=== PATIENT | male | born 1965 | race African-American/Black ===

== ENCOUNTER 2020-03-07 20:09 | Inpatient (IN) | payer OTHER ==
[~2020-03-07] VITALS: Ht 177.8 cm; Wt 100.1 kg
[2020-03-07 20:28] VITALS: Ht 177.8 cm; Wt 100.1 kg
--- NOTE | 2020-03-07 20:33 | NUR ---
PATIENT JUDI DALE [facility] PARAMEDICS TO ED ROOM 14 FOR C/O NAUSEA/VOMITING FOR THE PAST THREE DAYS. PATIENT VOMITED FOUR TIMES TODAY DURING LUNCH AND DINNER TODAY. PATIENT DESCRIBES THE INCIDENT , "WHEN [HE] EATS, HE COUGHS AND THEN THE FOOD COMES OUT." PATIENT WAS TESTED FOR COVID-19 YESTERDAY AT [facility]. PATIENT DENIES HISTORY OF HYPOTENSION. DENIES PMH VOMITING EPISODES. DENIES PAIN. DENIES SHORTNESS OF BREATH. DENIES CHEST PAIN. PATIENT IS [facility] WITH TWO DEPUTIES AT BEDSIDE. WILL CONTINUE TO MONITOR. CALL LIGHT WITHIN REACH.
--- NOTE | 2020-03-07 20:39 | NUR ---
\PATIENT STATES HE HAS REGULAR BOWEL AND BLADDER REGIMEN.
[2020-03-07 21:08] LABS: BASOPHIL % 0.4 % (0-2); PLATELET COUNT 130 x10^3mcL (130-400); RED CELL DISTRIBUTION WIDTH 14.1 % (11.5-14.5)
--- NOTE | 2020-03-07 21:18 | NUR ---
PATIENT IN STABLE CONDIION. DEPUTIES AT BEDSIDE.
[2020-03-07 21:31] LABS: ALBUMIN 3.4 g/dL (3.4-5.0); BILIRUBIN TOTAL 0.2 mg/dL (0.20-1.00); C REACTIVE PROTEIN 4.2 mg/dL (<=0.9); CALCIUM 7.6 mg/dL (8.5-10.1); CARBON DIOXIDE 20.7 mmol/L (21-32); CREATININE SERUM 3.1 mg/dL (0.7-1.3); POTASSIUM SERUM 4.2 mmol/L (3.5-5.1)
--- NOTE | 2020-03-07 23:11 | NUR ---
ANTIBIOTICS AND IV FLUIDS RUNNING INDICATED. PATIENT BLOOD PRESSURE CUFF CHANGED. PATIENT'S CURRENT BLOOD PRESSURE: 109/61 (73), HR: 84 BPM
[2020-03-07 23:45] LABS: UA SPECIFIC GRAVITY 1.025 (1.005-1.035); microscopic required? YES; urine erythrocyte 1+ (NEGATIVE)
--- NOTE | 2020-03-07 23:59 | NUR ---
REPORT GIVEN TO ARASELI TREVIZO.
[2020-03-08 00:29] VITALS: BP 100/52
--- NOTE | 2020-03-08 00:30 | NUR ---
PT TRANSFERRED TO ICU BED 9 ACCOMPNAIED FROM ER, [facility] EMT AND LANDEN RN, 2 [facility] GUARDS. PT AMBULATED TO ICU BED 9 FROM [facility] [place]. PT ATTACHED TO FULL MASTER COOK AND CONTINUOUS PULSE OXIMETRY. RECEIVED PT WITH AWAKE/ALERT, LAC 20G, RAC 20G SALINE LOCKED, ON ROOM AIR, NO ACUTE DISTRESS, NO SOB. SEE NURSING ASSESSMENT FOR MORE DETAILS.
--- NOTE | 2020-03-08 00:52 | NUR ---
NS GTT INITIATED AT THIS TIME @ 100 ML/HR PER EMAR.
--- NOTE | 2020-03-08 01:40 | NUR ---
PT DESATURATING @ 89-90%, NASAL CANNULA 2LPM ATTACHED TO PATIENT. PT NOW SATURATING 95-97%.
[2020-03-08 03:04] VITALS: BP 113/50
[2020-03-08 04:00] VITALS: BP 113/50
[2020-03-08 05:15] LABS: BASOPHIL % 0.4 % (0-2); RED CELL DISTRIBUTION WIDTH 14.2 % (11.5-14.5)
[2020-03-08 05:16] LABS: PLATELET COUNT 120 x10^3mcL (130-400)
[2020-03-08 05:32] LABS: CALCIUM 6.7 mg/dL (8.5-10.1); CREATININE SERUM 2.4 mg/dL (0.7-1.3); POTASSIUM SERUM 4.2 mmol/L (3.5-5.1)
--- NOTE | 2020-03-08 07:07 | NUR ---
GAVE REPORT TO AMBER TREVIZO. UPDATES PROVIDED, QUESTIONS ANSWERED. ENDORSED CARE.
--- NOTE | 2020-03-08 07:28 | NUR ---
SPOKE WITH DR. JORDAN GIVEN UPDATES ON PT CURRENT STATUS.
[2020-03-08 07:50] VITALS: BP 121/66
--- NOTE | 2020-03-08 07:50 | NUR ---
RECEIVED PT FROM CVICU NURSE RN. Cristina/OX4. ON STUDENT DEVELOPMENT ADVISOR. PT DENIES ANY PAIN AT THIS TIME. PT DENIES ANY N/V AT THIS TIME. RESPIRATIONS EQUAL AND UNLABORED ON 2L NC, DENIES ANY SOB. PT REPORTS HAVE DRY COUGH ON AND OFF, RR:16, SPO2:95%. NO ACUTE RESP DISTRESS NOTED. PT NOTED TO HAVE TOTAL OF 600ML OF CLEAR YELLOW URINE FROM URINAL. PT SITTING UP TO EAT BREAKFAST, TOLERATING WELL AT THIS TIME. IV TO LAC PATENT AND INFUSING, NO REDNESS OR SWELLING NOTED. WILL CONTINUE TO MONITOR. CALL LIGHT IN REACH. BED IN LOWEST POSITION.
--- NOTE | 2020-03-08 09:10 | NUR ---
PT SITTING UP IN BED. PT DENIES ANY PAIN OR SOB AT THIS TIME. DR. THIBODEAUX AT BEDSIDE, STATES PT STABLE TO TX TO TELE. WILL CONTINUE TO MONITOR. CALL LIGHT IN REACH. BED IN LOWEST POSITION.
--- NOTE | 2020-03-08 10:06 | NUR ---
SPOKE WITH DR. PERDOMO AT BEDSIDE, PER DR. PERDOMO WILL ORDER IV FLUID HYDRATION.
--- NOTE | 2020-03-08 13:06 | NUR ---
LATE ENTRY: 1237: PATIENT ARRIVED TO UNIT WITH POLICE ESCORT DUE TO [facility] STATUS, TRANSFERED FROM THE ICU BY WHEELCHAIR. PATIENT ALERT AND ORIENTED X 4, DENIED ACUTE DISTRESS OR PAIN, WILL CONTINUE TO [facility].
[2020-03-08 16:32] VITALS: BP 108/56
--- NOTE | 2020-03-08 19:26 | NUR ---
REPORT GIVEN TO METAL TEMPLATE MAKER NURSE CARE ENDORSED
--- NOTE | 2020-03-08 19:40 | NUR ---
RECIEVED PT FROM PREVIOUS SHIFT NURSE. PT EASILY AROUSABLE, AOX4, ABLE TO FOLLOW COMMANDS, DENIES MYERS, N/V, OR PAIN AT THE MOMENT, SPEECH CLEAR, ABLE TO MAKE NEEDS KNOWN, AND NO FACIAL DROOPING NOTED. RR EVEN AND UNLABORED ON 2L/NC, CHEST RISING EQUALLY, DENIES SOB OR DIFFICULTY BREATHING, AND DRY COUGH NOTED. TELE #24 NSR, DENIES CHEST PAIN OR PRESSURE. IV RAC AND LAC WNL, NO ERYTHEMA, EDEMA, OR DRAINAGE NOTED, NS RUNNING AT 100ML/HR ON RAC. PT ON DROPLET/CONTACT ISOLATION FOR COVID-19(+). NO SIGNS OF ACUTE CHANGE OR DISTRESS NOTED. BED IN LOWEST POSITION, SIDE RAILS X2, AND CALL LIGHT WITHIN REACH. TWO CORRECTIONAL OFFICERS PRESENT. WILL CONTINUE TO MONITOR.
--- NOTE | 2020-03-08 19:48 | NUR ---
RECIEVED PT FROM PREVIOUS SHIFT NURSE. PT EASILY AROUSABLE, AOX4, ABLE TO FOLLOW COMMANDS, DENIES MYERS, N/V, OR PAIN AT THE MOMENT, SPEECH CLEAR, ABLE TO MAKE NEEDS KNOWN, AND NO FACIAL DROOPING NOTED. RR EVEN AND UNLABORED ON 2L/NC, CHEST RISING EQUALLY, DENIES SOB OR DIFFICULTY BREATHING, AND DRY COUGH NOTED. TELE #24 NSR, DENIES CHEST PAIN OR PRESSURE. IV RAC AND LAC WNL, NO ERYTHEMA, EDEMA, OR DRAINAGE NOTED, NS RUNNING AT 100ML/HR ON RAC. PT ON DROPLET/CONTACT ISOLATION FOR COVID-19 RO/0 PENDING RESULTS. NO SIGNS OF ACUTE CHANGE OR DISTRESS NOTED. BED IN LOWEST POSITION, SIDE RAILS X2, AND CALL LIGHT WITHIN REACH. TWO CORRECTIONAL OFFICERS PRESENT. WILL CONTINUE TO MONITOR.
[2020-03-08 23:12] VITALS: BP 125/60
--- NOTE | 2020-03-09 01:55 | NUR ---
PT RESTING COMFORTABLY IN BED, HOB ELEVATED, AND EASILY AROUSABLE. RR EVEN AND UNLABORED ON 2L/NC, CHEST RISING EQUALLY. TELE #24 NSR. NO SIGNS OF ACUTE CHANGE OR DISTRESS NOTED. IV RAC AND LAC WNL, NO ERYTHEMA, EDEMA, OR DRAINAGE NOTED, NS RUNNING AT 100ML/HR ON RAC. PT ON DROPLET/CONTACT PRECAUTION FOR COVID-19 R/O, PENDING RESULTS. BED IN LOWEST POSITION, SIDE RAILS UP X2, AND CALL LIGHT WITHIN REACH. TWO CORRECTIONAL OFFICERS PRESENT. WILL CONTINUE TO MONITOR.
[2020-03-09 05:21] VITALS: BP 100/55
--- NOTE | 2020-03-09 06:32 | NUR ---
PT RESTING COMFORTABLY IN BED, EASILY AROUSABLE. RR EVEN AND UNLABORED ON 2L/NC, CHEST RISING EQUALLY. TELE #24 NSR. NO SIGNS OF ACUTE CHANGE OR DISTRESS NOTED. IV RAC AND LAC NOTED BOTH WNL, NS RUNNING AT 100ML/HR ON RAC. PT ON DROPLET/CONTACT ISOLATION FOR PENDING COVID-19 TEST. BED IN LOWEST POSITION, BED RAILS X2, AND CALL LIGHT WITHIN REACH. TWO CORRECTIONAL OFFICERS AT BEDSIDE. WILL ENDORSE CARE TO ONCOMING SHIFT NURSE, AND WILL CONTINUE TO MONITOR.
[2020-03-09 06:47] LABS: PLATELET COUNT 144 x10^3mcL (130-400); RED CELL DISTRIBUTION WIDTH 14.3 % (11.5-14.5)
--- NOTE | 2020-03-09 07:00 | NUR ---
RECEIVED PT FROM NIGHT RN. PT RESTING IN BED, AAOX4. SPEECH CLEAR. DENIES MYERS/DIZZINESS. RES E/U, NO RESPIRATORY DISTRESS ON 2L/MIN NC. DRY COUGH NOTED, DENIES SOB. TELE MONITOR 24 SHOWING SR, DENIES CHEST PAIN/PRESSURE. ABDOMEN ROUND AND SOFT. DENIES N/V, DIARRHEA. VOIDS IN URINAL WITHOUT DIFFICULTY. IV SITE TO RAC INFUSING NS AT 100ML/HR. IV SITE TO LAC SL. BOTH IV SITES FLUSHED AND PATENT W NO ERYTHEMA, NO SWELLING NOTED. SAFETY PRECAUTIONS IN PLACE. GUARD AT THE DOOR.
[2020-03-09 07:11] LABS: ALKALINE PHOSPHATASE 45 U/L (46-116); ALT/SGPT 56 U/L (16-63); AST/SGOT 45 U/L (15-37); BILIRUBIN TOTAL 0.2 mg/dL (0.20-1.00); CARBON DIOXIDE 24.7 mmol/L (21-32); CHLORIDE SERUM 106 mmol/L (98-107); CREATININE SERUM 1.3 mg/dL (0.7-1.3); GFR1 > 60 mL/min; GLUCOSE SERUM 89 mg/dL (74-106); PHOSPHOROUS 2.3 mg/dL (2.5-4.9); POTASSIUM SERUM 4.1 mmol/L (3.5-5.1); SODIUM SERUM 142 mmol/L (136-145); TOTAL PROTEIN, SERUM 6.5 g/dL (6.4-8.2)
[2020-03-09 08:10] VITALS: BP 99/49
[2020-03-09 12:48] VITALS: BP 96/63
[2020-03-09 14:32] LABS: BAND NEUTROPHIL 4 % (0-10); MONOCYTE 16 % (0-7); SEGMENTED NEUTROPHILS 60 % (37-75); rbc morphology (normal/abnorm) ABNORMAL (NORMAL)
[2020-03-09 14:33] LABS: PATH REVIEW for HEMA NO; PLATELET MORPHOLOGY PLATELETS DECREASED
[2020-03-09 16:48] VITALS: BP 114/65
--- NOTE | 2020-03-09 19:05 | NUR ---
PT RESTING IN BED WITHOUT APPARENT DISTRESS. NO C/O PAIN/DISCOMFORT THROUGHOUT SHIFT. WILL ENDORSE CARE TO NEXT SHIFT
--- NOTE | 2020-03-09 20:34 | NUR ---
PT RECIEVED FROM DAY SHIFT NURSE. PT IS RESTING IN BED AT THIS TIME. A/O X4, CALM AND COOPERATIVE. PT IS TELE 24, NSR, PULSE 63, DENIES CP OR PALPITATIONS. PT HAS PAPABLE PULSES, NO EDEMA PRESENT AT THIS TIME. PT LUNG SOUNDS ARE DIMINISHED AT THE BASES. DRY COUGH PRESENT. PT IS ON RMA, SP02 97%. NO SKIN WOUNDS PRESENT. PT IS ABLE TO SELF VOID. PT HAS ACTIVE BOWEL SOUNDS. PT REPORTS SOFT BM. PT DENIES PAIN OR DISCOMFORT. PT HAS IV ON RAC/LAC, PATENT, CDI. CALL LIGHT WITHIN REACH WILL CONTINUE TO MONITOR.
[2020-03-09 20:35] VITALS: BP 134/82
--- NOTE | 2020-03-10 00:40 | NUR ---
PT IS RESTING IN BED AT THIS TIME. DENIES PAIN OR DISCOMFORT. BREATHING E/U, RMA. PT DENIES SOB. NO S/S OF ACUTE DISTRESS NOTED. DENIES CP OR PALPITATIONS. ALL NEEDS AND CONCERNS HAVE BEEN MET AT THIS TIME. CALL LIGHT WITHIN REACH. WILL CONTINUE TO MONITOR.
[2020-03-10 06:42] VITALS: BP 120/72
--- NOTE | 2020-03-10 06:43 | NUR ---
PT RESTING IN BED AT THIS TIME. BREATHING E/U, RMA, SP02 93%. NO RESPIRATORY DISTRESS NOTED AT THIS TIME. PT DENIES PAIN OR DISCOMFORT AT THIS TIME. ALL NEEDS AND CONCERNS HAVE BEEN MET THIS SHIFT. CALL LIGHT WITHIN REACH. WILL ENDORSE TO DAY SHIFT NURSE.
--- NOTE | 2020-03-10 07:00 | NUR ---
RECEIVED PT FROM NIGHT RN. PT RESTING IN BED AAOX4, SPEECH CLEAR. DENIES MYERS/DIZZINESS. RES E/U, NO RESPIRATORY DISTRESS NOTED. DENIES SOB. TELE MONITOR 24 SHOWING SR, DENIES CP/PRESSURE. PERIPHERAL PULSES PALPABLE W NO EDEMA NOTED. ABDOMEN SOFT. VOIDS IN URINAL WITHOUT DIFFICULTY. NO GI/ COMPLAINT. IV SITE TO RAC INFUSING NS AT 75ML/HR. IV SITE TO LAC SL. BOTH IV SITES PATENT AND CDI W NO ERYTHEMA, SWELLING NOTED. GUARD AT DOOR. SAFETY PRECAUTIONS IN PLACE.
[2020-03-10 07:48] LABS: BASOPHIL % 0.4 % (0-2); PLATELET COUNT 153 x10^3mcL (130-400); RED CELL DISTRIBUTION WIDTH 13.7 % (11.5-14.5)
[2020-03-10 08:47] LABS: CALCIUM 7.3 mg/dL (8.5-10.1); CARBON DIOXIDE 24.2 mmol/L (21-32); CHLORIDE SERUM 104 mmol/L (98-107); GFR1 > 60 mL/min; GLUCOSE SERUM 83 mg/dL (74-106); POTASSIUM SERUM 3.8 mmol/L (3.5-5.1); SODIUM SERUM 140 mmol/L (136-145)
--- NOTE | 2020-03-10 17:45 | NUR ---
RETAIL DISTRICT MANAGER REPORTS ORAL TEMP OF 99.8F, GIVEN TYLENOL PER EMAR.
--- NOTE | 2020-03-10 18:46 | NUR ---
PT RESTING IN BED WITHUOT APPARENT DISTRESS. DENIES ANY PAIN/DISCOMFORT. IV SITE TO RAC INFUSING NS AT 75 ML/HR. IV SITE TO LAC SL. BOTH IV SITE PATENT AND CDI W NO ERYTHEMA, NO SWELLING NOTED. NO SIGNIFICANT CHANGES NOTED. WILL ENDORSE CARE TO NEXT SHIFT
[2020-03-10 22:15] VITALS: BP 121/70
--- NOTE | 2020-03-10 22:20 | NUR ---
PT RECIEVED FROM DAY SHIFT NURSE. PT IS RESTING IN BED AT THIS TIME. DROPLET ISOLATION, COVID +. PT IS A/O X4, CALM AND COOPERATIVE. PT IS ON TELE 24, NSR, PULSE 75. DENIES CP OR PALPITATIONS. PT HAS PAPABLE PULSES, NO EDEMA PRESENT AT THIS TIME. LUNG SOUNDS DIMINSHED ON THE BILATERAL BASES. PT DENIES SOB, RMA S02 98%. BOWEL SOUNDS ACTIVE. PT IS ABLE TO SELF VOID, USES URINAL. PT HAS NO GENERALIZED WEAKNESS, PT IS ABLE TO AMBULATE. NO SKIN WOUNDS, SKIN CLEAN AND DRY. PT DENIES PAIN OR DISCOMFORT. IV ON RAC/LAC, CDI, PATENT. CALL LIGHT WITHIN REACH. WILL CONTINUE TO MONITOR.
--- NOTE | 2020-03-11 00:16 | NUR ---
PT RESTING IN BED AT THIS TIME. BREATHING E/U, RMA, SP02 97%. NO ACUTE RESPIRATORY DISTRESS NOTED. PT DENIES SOB, CP OR PALPITATIONS. PULSE 73, NSR. NO ACUTE DISTRESS NOTED AT THIS TIME. PT DENIES PAIN OR DISCOMFORT. CALL LIGHT WITHIN REACH. WILL CONTINUE TO MONITOR.
--- NOTE | 2020-03-11 05:25 | NUR ---
PT RESTING IN BED AT THIS TIME. PT SLEPT IN INTERVALS DURING THE NIGHT. NO C/O OF PAIN OR DISCOMFORT THROUGHOUT THE SHIFT. PULSE 79, NSR, DENIES CP OR PALPITATIONS. SP02 97%, DENIES SOB. NO ACUTE RESPIRATORY DISTRESS OBSERVED. PT DROPLET/CONTACT ISOLATION, COVID +. ALL NEEDS AND CONCERNS MET THIS SHIFT. WILL ENDORSE TO DAY SHIFT NURSE.
[2020-03-11 06:58] VITALS: BP 122/75
--- NOTE | 2020-03-11 07:20 | NUR ---
RECEIVED PATIENT. IN BED, SLEEPING. EASILY AROUSABLE. NO ACUTE RESP DISTRESS NOTED. NO COMPLAINTS OF PAIN AT THIS TIME. IV INTACT AND PATENT. SAFETY PREC IN PLACE. CALL LIGHT WITHIN REACH. WILL CONTINUE TO MONITOR. GUARDS OUTSIDE ROOM. REMAINS ON DROPLET ISO FOR COVID ISOLATION.
[2020-03-11 08:15] VITALS: BP 125/66
[2020-03-11 11:31] LABS: CALCIUM 7.5 mg/dL (8.5-10.1); CARBON DIOXIDE 25.3 mmol/L (21-32); CHLORIDE SERUM 107 mmol/L (98-107); CREATININE SERUM 0.9 mg/dL (0.7-1.3); GFR1 > 60 mL/min; GLUCOSE SERUM 157 mg/dL (74-106); POTASSIUM SERUM 3.5 mmol/L (3.5-5.1); SODIUM SERUM 140 mmol/L (136-145)
[2020-03-11 11:36] LABS: ALT/SGPT 58 U/L (16-63); AST/SGOT 32 U/L (15-37)
[2020-03-11 11:38] LABS: BASOPHIL % 0.3 % (0-2); PLATELET COUNT 179 x10^3mcL (130-400); RED CELL DISTRIBUTION WIDTH 14.1 % (11.5-14.5)
--- NOTE | 2020-03-11 11:45 | NUR ---
DISCONTINUED IV FLUIDS ORDERED. PATIENT STABLE. PATIENT O2 WEANED DOWN TO ROOM AIR. TOLERATING WELL. ENCOURAGED PRONE POSITION. INFORMED PATIENT TO CALL IF EXPERIENCING SOB OR DIFFICULTY BREATHING. WILL CONTINUE TO MONITOR.
[2020-03-11 13:43] VITALS: BP 133/87
--- NOTE | 2020-03-11 14:00 | NUR ---
PATIENT STABLE. REMAINS ON ROOM AIR WITH 96% SATURATION AT THIS TIME. NO ACUTE RESP DISTRESS NOTED. NO C/O PAIN. IV SITES, WNL. INTACT AND PATENT. NO ERYTHEMA/SWELLING NOTED. SAFETY PRECAUTION IN PLACE. CALL LIGHT WITHIN REACH. WILL CONTINUE TO MONITOR. GUARDS OUTSIDE ROOM. REMAINS ON COVID ISOLATION.
--- NOTE | 2020-03-11 14:30 | NUR ---
PER PHARMACIST, PATIENT IS NOT A CANDIDATE PER PROTOCOL TO RECEIVE REMDESIVIR MEDICATION DUE TO PATIENT BEING IN ROOM AIR WITH O2 SATURATION ABOVE 94% CHARGE NURSE MADE AWARE. WILL CONTINUE TO MONITOR.
[2020-03-11 17:01] VITALS: BP 147/92
--- NOTE | 2020-03-11 17:15 | NUR ---
RECEIVED REMDESEVIR MEDICATION FROM PHARMACY. CONFIRMED ADMINISTRATION WITH PHARMACIST. PER MANNY LEO, OK TO GIVE THIS MEDICATION PATIENT STILL QUALIFIES THE PROTOCOL. WILL ADMINISTER MEDICATION TO PATIENT. WILL CONTINUE TO MONITOR.
--- NOTE | 2020-03-11 18:40 | NUR ---
PATIENT STABLE. NO ACUTE RESP DISTRESS NOTED. REMAINS ON ROOM AIR. NO C/O PAIN. IV INTACT AND PATENT. SAFETY PREC IN PLACE. CALL LIGHT WITHIN REACH. WILL ENDORSE CARE TO SOFTWARE TOOLS BUILD ENGINEER NURSE. GUARDS OUTSIDE ROOM. REMAINS ON COVID POSITIVE ISOLATION.
--- NOTE | 2020-03-11 19:20 | NUR ---
PATIENT STABLE. ALL NEEDS MET. ENDORSED ALL CARE TO BEEF SPLITTER NURSE.
--- NOTE | 2020-03-11 20:50 | NUR ---
PT RECIEVED FROM DAY SHIFT NURSE. PT RESTING IN BED AT THIS TIME. NO ACUTE DISTRESS NOTED AT THIS TIME. PT A/O X4, CALM AND COOPERATIVE. TELE 24, NSR, PULSE 80. DENIES CP OR PALPITATIONS. PT HAS PAPABLE PULSES, NO EDEMA PRESENT AT THIS TIME. PT HAS DIMINISHED BILATERAL BASES, RMA, SP02 93%. DENIES SOB. PT HAS ACTIVE BOWEL SOUNDS, PT REPORTS WATERY STOOL. PT IS ABLE TO SELF VOID, URINAL AT THE BEDSIDE. PT HAS NO WEAKNESS, ABLE TO AMBULATE. PT HAS CLEAN AND DRY SKIN. PT IS ON TKO 10 ML/HR, IV LAC/RAC, CDI, PATENT. CALL LIGHT WITHIN REACH WILL CONTINUE TO MONITOR.
[2020-03-11 21:41] VITALS: BP 126/70
--- NOTE | 2020-03-12 00:22 | NUR ---
PT RESTING IN BED AT THIS TIME. NO ACUTE DISTRESS AT THIS TIME. PT ON RMA, SP02 96%. DENIES SOB. PT PULSE IS 83, DENIES CP OR PALPITATIONS. PRECAUTIONS IN PLACE. DENIES PAIN OR PALPITATIONS. CALL LIGHT WITHIN REACH. WILL CONTINUE TO MONITOR.
--- NOTE | 2020-03-12 05:30 | NUR ---
PT RESTING IN BED AT THIS TIME. NO S/S OF ACUTE DISTRESS NOTED AT THIS TIME. PT HAS PULSE 83. PT DENIES CP AND PALPITATIONS. SPO2 96%, DENIES SOB. PT DENIES PAIN OR DISCOMFORT. ALL PRECAUTIONS IN PLACE. PT SLEPT IN INTERVALS THROUGHOUT THE NIGHT. [facility] OFFICERS OUTSIDE DOOR. ALL NEEDS AND CONCERNS MET THIS SHIFT. WILL ENDORSE TO DAY SHIFT NURSE.
[2020-03-12 07:15] LABS: CHLORIDE SERUM 107 mmol/L (98-107); CREATININE SERUM 0.8 mg/dL (0.7-1.3); GFR1 > 60 mL/min; GLUCOSE SERUM 94 mg/dL (74-106); POTASSIUM SERUM 3.6 mmol/L (3.5-5.1); SODIUM SERUM 142 mmol/L (136-145)
[2020-03-12 07:36] VITALS: BP 135/84
[2020-03-12 07:38] LABS: BASOPHIL % 0.3 % (0-2); PLATELET COUNT 218 x10^3mcL (130-400); RED CELL DISTRIBUTION WIDTH 14.1 % (11.5-14.5)
--- NOTE | 2020-03-12 08:06 | NUR ---
RECEIVED PT FROM CLEANER HOUSEKEEPING RN. RANDALL ABLE TO MAKE NEEDS KNOWN. ON TELE #24 NSR. DENIES CP. LUNGS DIMINISHED AT BASES, ON RA, C/O DRY COUGH, DENIES SOB. ABODMEN SOFT/ROUND, C/O WATERY STOOL, ABDOMEN NONTENDER, DENIES N/V. AMBULATORY PER BRP, SKIN INTACT, DENIES PAIN. IV SITE CLEAN AND DRY. CALL LIGHT IN REACH WILL CONTINUE TO MONITOR.
[2020-03-12 08:51] VITALS: BP 115/67
[2020-03-12 12:43] VITALS: BP 137/84
[2020-03-12 17:59] VITALS: BP 142/86
[2020-03-12 18:44] VITALS: BP 142/86
--- NOTE | 2020-03-12 18:46 | NUR ---
PT RESTING IN BED, DENIES ANY SOB. COUGH NOTED. WILL ENDORSE CARE TO COMMUNITY COORDINATOR RN.
--- NOTE | 2020-03-12 19:41 | NUR ---
PT RESTING IN BED, ALERT AND ORIENTED X 4, DENIES HEADACHE OR DIZZINESS, BREATHING EVEN AND UNLABORED WITH ON AND OFF O2 2L VIA NC, DE-SATS AT TIMES, LUNG SOUNDS DIMINISHED, ON TELE#24 NSR, DENIES CHEST PAIN, SL TO LAC, PULSES PALPABLE, NO EDEMA NOTED, AMBULATORY WITH STEADY GAIT, ABD SOFT AND FLAT WITH ACTIVE BS, DENIES ABD PAIN, VOIDING FREELY, NO DISTRESS NOTED, WILL KEEP TO MONITOR.
[2020-03-12 20:28] VITALS: BP 136/81
[2020-03-13 05:40] VITALS: BP 134/74
--- NOTE | 2020-03-13 06:29 | NUR ---
PT AWAKE AND RESTING IN BED, PT ACCIDENTALLY HAD BM THIS MORNING, LINENS CHANGED, MILD SOB ON EXERTION, PLACED PT ON O2 2L VIA NC, NO DISTRESS NOTED, WILL KEEP TO MONITOR.
[2020-03-13 07:14] LABS: PLATELET COUNT 244 x10^3mcL (130-400); RED CELL DISTRIBUTION WIDTH 14.1 % (11.5-14.5)
--- NOTE | 2020-03-13 07:15 | NUR ---
RECEIVED PATIENT FROM INSPECTOR WEIGHTS AND MEASURES RN .CALLED IN PATIENT, AOX4, TELE 24, NSR, NOT IN DISTRESS, NO SOB, NO N/V, NO ABD PAIN, GENERALIZED WEAKNESS, VOIDS WELL WITH NO DYSURIA, ABLE TO MAKE NEEDS KNOWN.
[2020-03-13 07:21] LABS: BASOPHIL % 0 % (0-2)
[2020-03-13 07:26] LABS: ALKALINE PHOSPHATASE 52 U/L (46-116); ALT/SGPT 55 U/L (16-63); AST/SGOT 32 U/L (15-37); BILIRUBIN TOTAL 0.4 mg/dL (0.20-1.00); CALCIUM 8.1 mg/dL (8.5-10.1); CARBON DIOXIDE 23.8 mmol/L (21-32); CHLORIDE SERUM 107 mmol/L (98-107); CREATININE SERUM 0.9 mg/dL (0.7-1.3); GFR1 > 60 mL/min; GLUCOSE SERUM 103 mg/dL (74-106); POTASSIUM SERUM 3.6 mmol/L (3.5-5.1); SODIUM SERUM 143 mmol/L (136-145); TOTAL PROTEIN, SERUM 6.9 g/dL (6.4-8.2)
[2020-03-13 07:28] LABS: ALBUMIN 2.7 g/dL (3.4-5.0)
--- NOTE | 2020-03-13 08:26 | NUR ---
MEDICATIONS GIVEN PER EMAR.
[2020-03-13 08:44] VITALS: BP 148/88
[2020-03-13 12:55] VITALS: BP 151/66
--- NOTE | 2020-03-13 15:21 | NUR ---
1. Recommend continue regular diet as tolerate
--- NOTE | 2020-03-13 15:21 | NUR ---
Initial Nutrition Assessment: 223T/B THOR PIKE 55M MR IA Dx: PNA, KRUPA, COVID r/o PMHx: HTN PSHx: none noted Labs: H/H 12.8/39L (BUN, Cr WNL on 03/13) Meds: Tums PRN meds: Phenergan, Tylenol, Ventolin Diet: Regular diet PO intake since admission: 50-100% x 6 meals with average PO intake of 84%. Ht: 177.8cm/70in Wt: 100.1kg/220lbs BMI: 31.7 Bed scale: unknown IBW: 75.45kg/166lbs %IBW: 132.66% ABW: 82kg UBW: unknown Age: 55 Food Allergies: unknown Edema: none noted Last BM: 03/12 Skin: skin intact Jason: 20 Per H and P (03/07), 55 yo male h/o HTN [facility] resident who has been exposed to COVID 19 inmates. His COV 19 was tested 2 days ago, result unknown. He had been c/o nausea, vomiting, became extremely lethargic. He was also spiking fever when seen in the ed. He was hypotensive, sbp in the 90's after given 2l ns. Kidney function was also abn, CXR with infiltrates. He was admitted to the ICU as his BP remains low. Pt was admitted with dx: Hypotension, KRUPA, dehydration, r/o septic shock, PNA, h/o HTN, r/o COVID 19 RD Note (03/13) Pt was in isolation d/t COIVD-19. Per pt's primary RN, pt had good appetite, and pt was tolerating diet with no chewing or swallowing difficulty. Pt has average PO intake of 84% since admission, which provides 2264kcal and 101g protein meeting 100% of estimated kcal and protein needs. Problem with: N/V/D/C: no per RN Problems with: Chewing: Swallowing: No per RN Current appetite: Good per RN Recent wt change: unknown %wt change: unknown Height: unknown Vitamin/Supplement use: unknown Special diet at home: unknown Physical activity: unknown Nutrition education given (specify specific nutrition education and handout given): n/a Food-drug interactions? Education given? n/a Estimated Nutritional Needs Based on body weight (82kg) Energy: 1945-8600 kcal/day (30-35 kcal/kg for viral infection) Protein: 98-123 g/day (1.2-1.5 g/kg for viral infection) Fluid: 3990-0163 mL/day (1 mL/kcal) Nutrition Diagnosis: 1. Increased energy and protein needs r/t hypermetabolic state a/e/b pt has COVID-19. Intervention 1. Recommend continue regular diet as tolerate Monitor/Evaluate Goal: PO intake at least 75% of estimated needs Monitor: PO intake, Labs, GI function F/U in 7 days as low risk 03/20
--- NOTE | 2020-03-13 17:57 | NUR ---
PATIENT ACCIDENTALLY PULLED OUT HIS IV FROM LAC. TRIED TO LOOK FOR IV SITE AT HIS RIGHT ARM. NOTED REDNESS AT [facility] AND ASKED PATIENT WHERE IT CAME FROM, PER PATIENT, IT HAPPENED LAST NIGHT , IV WAS LEAKING. ASKED PATIENT IF HE HAD ANY ITCHINESS OR REACTION TO THE DRUG SUCH NAUSEA OR VOMITING OR SWEATING, PER PATIENT , HE SAID NO. INSERTED ANOTHER LINE AT . IV INTACT AND PATENT, NO REDNESS OR SWELLING. CALL LIGHT WITHIN REACH , BED AT LOWEST POSITION, SIDE RAILS UP. WARNED PATIENT OF SIDE EFFECT AND TO CALL RN IF ANY REACTION OCCURS.
[2020-03-13 18:01] VITALS: BP 116/45
--- NOTE | 2020-03-13 18:15 | NUR ---
PATIENT HAD NO REACTION FROM REMDISIVIR, IV SITE CLEANED WITH ALCOHOL SWAB, 30CC FLUSH GIVEN.
--- NOTE | 2020-03-13 19:12 | NUR ---
PT RESTING IN BED, ALERT AND ORIENTED X 4, DENIES HEADACHE OR DIZZINESS, BREATHING EVEN AND UNLABORED WITH ON AND OFF O2 2L VIA NC, DE-SATS AT TIMES, LUNG SOUNDS DIMINISHED, MILD SOB ON EXERTION, ON TELE#24 NSR, DENIES CHEST PAIN, SL TO RH, PULSES PALPABLE, NO EDEMA NOTED, AMBULATORY WITH STEADY GAIT, ABD SOFT AND FLAT WITH ACTIVE BS, DENIES ABD PAIN, VOIDING FREELY, NO DISTRESS NOTED, WILL KEEP TO MONITOR.
[2020-03-13 20:55] VITALS: BP 108/63
--- NOTE | 2020-03-14 06:04 | NUR ---
PT AWAKE AND RESTING IN BED, BREATHING EVEN AND UNLABORED ON O2 2L VIA NC WITH NO RESP DISTRESS NOTED, NO C/O OF SOB SINCE BEGINNING OF SHIFT, CONDITION NO CHANGE, NO DISTRESS NOTED, WILL KEEP TO MONITOR.
[2020-03-14 06:08] VITALS: BP 106/71
--- NOTE | 2020-03-14 07:09 | NUR ---
REPORT GIVEN TO OREN, ALL QUESTIONS ANSWERED AND CONCERNS ADDRESSED.
--- NOTE | 2020-03-14 07:14 | NUR ---
RECEIVED PATIENT. IN BED, SLEEPING. EASILY AROUSABLE. REMAINS ON 2L NC WITH 100% O2 SATURATION. HR 83 BPM. NO C/O PAIN. IV SITE, WNL. SAFETY PREC IN PLACE. CALL LIGHT WITHIN REACH. WILL CONTINUE TO MONITOR.
[2020-03-14 07:25] LABS: PLATELET COUNT 264 x10^3mcL (130-400); RED CELL DISTRIBUTION WIDTH 14.2 % (11.5-14.5)
[2020-03-14 07:43] LABS: ALKALINE PHOSPHATASE 52 U/L (46-116); ALT/SGPT 56 U/L (16-63); AST/SGOT 34 U/L (15-37); CALCIUM 8.3 mg/dL (8.5-10.1); CARBON DIOXIDE 24.8 mmol/L (21-32); CHLORIDE SERUM 108 mmol/L (98-107); CREATININE SERUM 0.8 mg/dL (0.7-1.3); GFR1 > 60 mL/min; GLUCOSE SERUM 93 mg/dL (74-106); POTASSIUM SERUM 4.1 mmol/L (3.5-5.1); SODIUM SERUM 141 mmol/L (136-145); TOTAL PROTEIN, SERUM 6.7 g/dL (6.4-8.2)
[2020-03-14 07:54] LABS: ALBUMIN 2.5 g/dL (3.4-5.0)
[2020-03-14 08:24] LABS: SEGMENTED NEUTROPHILS 76 % (37-75)
[2020-03-14 08:25] LABS: BAND NEUTROPHIL 0 % (0-10)
[2020-03-14 08:26] LABS: BASOPHIL 1 % (0-2); MONOCYTE 10 % (0-7)
[2020-03-14 08:27] LABS: PLATELET MORPHOLOGY PLATELETS NORMAL; rbc morphology (normal/abnorm) NORMAL (NORMAL)
[2020-03-14 08:46] VITALS: BP 117/63
--- NOTE | 2020-03-14 10:44 | NUR ---
PT STABLE. NO ACUTE CHANGES. WILL CONTINUE TO MONITOR.
--- NOTE | 2020-03-14 12:10 | NUR ---
PATIENT SEEN AMBULATING TO THE RESTROOM WITH STEADY GAIT. NO ACUTE RESP DISTRESS NOTED. PATIENT NOW ON ROOM AIR. NO C/O PAIN. SAFETY PREC IN PLACE. GUARD AT BEDSIDE. CALL LIGHT WITHIN REACH. WILL CONTINUE TO MONITOR.
--- NOTE | 2020-03-14 12:10 | NUR ---
DR. ROSARIO MADE AWARE ABOUT ALBUMIN 2.5 AND GLOBULIN 4.2. NO NEW ORDERS AT THIS TIME. WILL CONTINUE TO MONITOR.
--- NOTE | 2020-03-14 12:40 | NUR ---
PATIENT STABLE. LUNCH TRAY GIVEN. NO ACUTE RESP DISTRESS NOTED. NO COMPLAINTS OF PAIN AT THIS TIME. IV SITE, WNL. SAFETY PREC IN PLACE. CALL LIGHT WITHIN REACH. WILL CONTINUE TO MONITOR.
[2020-03-14 13:16] VITALS: BP 1236/65
--- NOTE | 2020-03-14 14:06 | NUR ---
PHYSICAL THERAPY NOTE PATIENT DECLINES REHAB AT THIS TIME. PATIENT EDUCATED WITH BENEFITS FOR TREATMENT TO INCREASE OVERALL FUNCTIONAL MOBILITY. UNABLE TO ENCOURAGE. NURSING REPORTS OBSERVING PATIENT WALKING UNASSISTED IN ROOM. WILL RECOMMEND DC PT EVAL AT THIS TIME. NURSING TO MONITOR KATIA AND COMPLIANCY.
[2020-03-14 17:02] VITALS: BP 127/65
--- NOTE | 2020-03-14 17:35 | NUR ---
PATIENT EATING DINNER AT THIS TIME. NO ACUTE CHANGES. REMAINS ON ROOM AIR. WILL CONTINUE TO MONITOR.
--- NOTE | 2020-03-14 19:24 | NUR ---
PATIENT STABLE. ALL NEEDS MET. ENDORSED ALL CARE TO TISSUE INSERTER NURSE.
--- NOTE | 2020-03-14 19:35 | NUR ---
[facility] PT IS AAOX4. DENIES HEADACHE/NAUSEA/DIZZINESS AT THIS TIME. PT IS TELE #24, NSR, HR 71 BPM, DENIES CHEST PAIN. PT HAS BILATERAL EQUAL PULSES, NO EDEMA NOTED, SCDS ARE IN PLACE. LUNGS SOUNDS ARE DIMINISHED BILATERALLY, ON RA, DENIES SOB. ABDOMEN IS SOFT AND ROUND, NO PAIN UPON PALPATION. NORMOACTIVE BOWEL SOUNDS X4 QUADRANTS. LAST BM 03/13. PT IS AMBULATORY, WITH MILD GENERALIZED WEAKNESS. SKIN IS DRY AND INTRACT, NO LESIONS NOTED. IV IS RH, SALINE LOCKED. IV SITE IS PATENT, NO REDNESS OR SWELLING NOTED. PT IS CALM AND COOPERATIVE AT THIS TIME, [facility]. ALL COMFORT CARE ACCOUNTED FOR AT THIS TIME. BED IN LOWEST POSITION, CALL LIGHT WITHIN REACH. WILL CONTINUE TO MONITOR PT.
[2020-03-14 21:10] VITALS: BP 110/75
[2020-03-15] VITALS (7 sets, daily range): BP systolic 106–137; BP diastolic 64–88
--- NOTE | 2020-03-15 02:15 | NUR ---
PATIENT IS RESTING. NO ACUTE DISTRESS NOTED. HR IS 64 BPM, NO CHEST PAIN NOTED. SPO2 IS 100%, NO SOB. ALL COMOFRT CARE IS ACCOUNTED FOR. BED IN LOWEST POSITION, CALL LIGHT WITHIN REACH. WILL CONTINUE TO MONITOR.
--- NOTE | 2020-03-15 06:32 | NUR ---
PT RESTED INTERMITTENTLY THROUGHOUT THE NIGHT. NO ACUTE DISTRESSED NOTED. PT CONTINUES TO HAVE STABLE VITAL SIGNS, DENIES CHEST PAIN/DENIES SOB. PT DID NOT HAVE A BM, IS ABLE TO AMBULATE WITHOUT DIFFICULTY, USED BATHROOM FOR URINATING ONLY ONCE. VITAL SIGNS ARE STABLE. ALL COMFORT CARE WAS ACCOUNTED FOR AT THIS TIME. BED IN LOWEST POSITION, CALL LIGHT WITHIN REACH. WILL CONTINUE TO MONITOR.
--- NOTE | 2020-03-15 07:13 | NUR ---
ENDORSED CARE TO DAYSHIFT NURSE. ALL QUESTIONS/CONCERNS ADDRESSED.
--- NOTE | 2020-03-15 07:15 | NUR ---
RECEIVED PATIENT. IN BED. SLEEPING. EASILY AROUSABLE. REMAINS ON ROOM AIR. NO ACUTE RESP DISTRESS NOTED. NO COMPLAINTS OF PAIN NOTED. IV SITE, WNL. SAFETY PREC IN PLACE. CALL LIGHT WITHIN REACH. WILL CONTINUE TO MONITOR.
[2020-03-15 07:41] LABS: BASOPHIL % 0 % (0-2); PLATELET COUNT 319 x10^3mcL (130-400)
[2020-03-15 07:59] LABS: ALKALINE PHOSPHATASE 56 U/L (46-116); ALT/SGPT 57 U/L (16-63); AST/SGOT 25 U/L (15-37); BILIRUBIN TOTAL 0.3 mg/dL (0.20-1.00); CALCIUM 8.2 mg/dL (8.5-10.1); CARBON DIOXIDE 27.3 mmol/L (21-32); CHLORIDE SERUM 105 mmol/L (98-107); CREATININE SERUM 0.8 mg/dL (0.7-1.3); GFR1 > 60 mL/min; GLUCOSE SERUM 89 mg/dL (74-106); SODIUM SERUM 140 mmol/L (136-145); TOTAL PROTEIN, SERUM 6.9 g/dL (6.4-8.2)
[2020-03-15 08:00] LABS: ALBUMIN 2.6 g/dL (3.4-5.0)
--- NOTE | 2020-03-15 09:00 | NUR ---
PATIENT STABLE. NO ACUTE RESP DISTRESS NOTED. REMAINS ON ROOM AIR. NO C/O PAIN. EATING BREAKFAST AT THIS TIME. PATIENT ABLE TO REPOSITION SELF. SAFETY PREC IN PLACE. CALL LIGHT WITHIN REACH. WILL CONTINUE TO MONITOR. GUARD AT BEDSIDE.
--- NOTE | 2020-03-15 12:36 | NUR ---
DR. ROSARIO MADE AWARE ABOUT WBC 11.6. NO NEW ORDERS AT THIS TIME. PER DR. ROSARIO PROCEED WITH DISCHARGE AFTER GIVING LAST DOSE OF REMDESIVIR.
--- NOTE | 2020-03-15 16:45 | NUR ---
PATIENT STABLE. REMAINS ON ROOM AIR. NO ACUTE RESP DISTRESS NOTED. GUARDS MADE AWARE REFGARDING DISCHARGE ORDER. IV INTACT AND PATENT. REMDESIVIR IV INFUSING AT THIS TIME. WILL CONTINUE TO MONITOR.
--- NOTE | 2020-03-15 17:39 | NUR ---
DISCHARGE INSTRUCTIONS GIVEN TO PATIENT. PATIENT VERBALIZED UNDERSTANDING. ALL QUESTIONS AND CONCERNS ADDRESSED. D/C IV, TOLERATED WELL. CATHETER INTACT, APPLIED PRESSURE. GAUZE AND TAPE IN PLACE. ID BANDS REMOVED. TELE MONITOR REMOVED, CLEANED AND RETURNED TO TELE STATION. GUARDS AWARE OF DISCHARGE. ALL NEEDS MET.
--- NOTE | 2020-03-15 18:15 | NUR ---
PATIENT IS BEING DISCHARGED IN STABLE CONDITION. NO ACUTE RESP DISTRESS NOTED. PATIENT STABLE. ALL NEEDS MET. ACCOMPANIED TO LOBBY VIA WHEELCHAIR BY GUARDS AND COMPOUNDING SCALER.
== END 2020-03-15 18:20 | disposition other institution (70) | DRG 871 ==
LOC: ED 20:09 → IC 22:42 → DU 03-08 12:35
PROVIDERS: Internal Medicine; Internal Medicine Infectious Disease; Specialist; ADMIT Internal Medicine; ATTEND Internal Medicine
DX: A41.89 Other specified sepsis (principal); U07.1 COVID-19; R65.21 Severe sepsis with septic shock; J18.1 Lobar pneumonia, unspecified organism; J96.91 Respiratory failure, unspecified with hypoxia; N17.9 Acute kidney failure, unspecified; N18.9 Chronic kidney disease, unspecified; E86.0 Dehydration; I12.9 Hypertensive chronic kidney disease with stage 1 through stage 4 chronic kidney disease, or unspecified chronic kidney disease; D63.8 Anemia in other chronic diseases classified elsewhere; E83.51 Hypocalcemia; E16.2 Hypoglycemia, unspecified
CPT/HCPCS: 82962; 83880; 85378; 87804; G0378; J0456; J0696; J2405; J2543; J3535; J7030; J7040; J7050; J7060; Q0092; U0003-CS